=== PATIENT | female | born 1990 | race Caucasian/White ===

== ENCOUNTER → 2017-10-19 | Outpatient (CLI) | payer OTHER ==
[2017-10-19 15:37] LABS: HIV 1/2 Antibodies Non-Reactive; HIV-1p24 Antigen Non-Reactive
[2017-10-20 00:29] LABS: RPR (VDRL) Non-reactive (())
[2017-10-21 10:17] LABS: HERPES SIMPLEX VIRUS 1 IGG Negative (Negative); HERPES SIMPLEX VIRUS 2 IGG Negative (Negative)
== END ==
LOC: COL.LAB 11:52
PROVIDERS: Family Medicine
DX: Z11.3 Encounter for screening for infections with a predominantly sexual mode of transmission (principal)

== ENCOUNTER → 2017-11-10 | Outpatient (CLI) | payer OTHER | LOC: COL.LAB 14:58 | DX: Z01.89 Encounter for other specified special examinations (principal) ==

== ENCOUNTER → 2018-01-18 | Outpatient (CLI) | payer OTHER | LOC: COL.LAB 11:41 | DX: Z11.3 Encounter for screening for infections with a predominantly sexual mode of transmission (principal) ==

== ENCOUNTER → 2018-05-04 | Outpatient (CLI) | payer OTHER | LOC: COL.LAB 13:02 | DX: Z01.89 Encounter for other specified special examinations (principal); R10.9 Unspecified abdominal pain; R19.7 Diarrhea, unspecified ==

== ENCOUNTER → 2022-06-07 | Outpatient (CLI) | payer OTHER | LOC: MC.RAD 13:59 | DX: N63.20 Unspecified lump in the left breast, unspecified quadrant (principal) ==